=== PATIENT | female | born 1980 | race Hispanic/Latino ===

== ENCOUNTER 2017-04-11 10:07 | Emergency (ER) | payer OTHER ==
[2017-04-11 10:15] VITALS: BP 127/95; PULSE 79; TEMP 98; O2SAT 100
[2017-04-11 10:16] VITALS: BMI 21.7
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
== END 2017-04-11 15:28 | disposition home or self-care (01) ==
LOC: H.ER 10:07
DX: S99.921A Unspecified injury of right foot, initial encounter (principal); M25.571 Pain in right ankle and joints of right foot; V09.9XXA Pedestrian injured in unspecified transport accident, initial encounter; Y92.410 Unspecified street and highway as the place of occurrence of the external cause